=== PATIENT | female | born 1965 | race Caucasian/White ===

== ENCOUNTER → 2025-04-09 | Outpatient (CLI) | payer BC, SELFPAY ==
--- NOTE | 2025-04-09 12:30 | XR_ITS ---
Examination: Breast ultrasound complete, bilateral Date and time of exam: April 09, 2025 1223 hours INDICATIONS: Mammogram August 11, 2022 8mm oval mass right breast anterior depth 3 cm from the nipple Technique: Real-time grayscale ultrasonographic imaging bilateral breasts, including all 4 quadrants as well as nipple retroareolar and axillary regions. Findings: Sonographic images right and left breast demonstrated no cystic or solid masses IMPRESSION: BI-RADS Category 1: Negative studies
--- NOTE | 2025-04-09 13:30 | XR_ITS ---
Examination: Screening digital mammography, bilateral Computer aided detection 3-D breast Tomosynthesis, bilateral Date and time of exam: April 09, 2025, 1247 hours Compared to mammograms dating to April 17, 2017 Indication: Screening Technique: Nonmagnified MLO, CC views of the breasts to been obtained, reconstructed from 3-D Tomosynthesis images. R2 computer aided detection program utilized for evaluation of suspicious masses and/or abnormal calcifications. 3-D Tomosynthesis images obtained. Findings: Scattered areas of probable glandular density. 18 mm focal asymmetry upper outer left breast Impression: BI-RADS Category 0: Incomplete: Need additional imaging evaluation Recommend follow-up spot tomographic views of focal asymmetry upper outer left breast as well as left breast sonography to complete the workup
--- NOTE | 2025-04-09 13:45 | XR_ITS ---
Examination: Bone densitometry Date and time of exam:April 09, 2025 1248 hours INDICATIONS: Menopause age 43, family history mother osteoporosis, vitamin D 5 years, personal history osteopenia Compared to patient Technique: Lumbar spine and hip total bone mineralization values of an calculated. Peak reference and age match control results have been displayed. Findings: Lumbar spine total bone mineralization is0.821 gm/cm2. This is 2.1 standard deviations below peak reference. This is 0.5 standard deviations below age-matched controls. Hip total bone mineralization is 0.771 gm/cm2 This is 1.4 standard deviations below peak reference. This is 0.3 standard deviations below age-matched controls Impression: There is osteopenia based on lumbar spine measurements. There is osteopenia based on hip measurements Lumbar mineralization is decreased 4.4% compared with June 17, 2019 Hip mineralization is increased 2.2% compared with June 17, 2019
== END | disposition home or self-care (01) ==
LOC: CDIM 12:12
PROVIDERS: PCP Internal Medicine; Referring Provider Internal Medicine; Visit Provider Internal Medicine
DX: Z12.31 Encounter for screening mammogram for malignant neoplasm of breast (principal); N64.89 Other specified disorders of breast; M85.89 Other specified disorders of bone density and structure, multiple sites
CPT/HCPCS: 76641; 77063; 77067; 77080

== ENCOUNTER 2025-04-28 08:30 | Day surgery (SDC) | payer BC, SELFPAY ==
[2025-04-28] VITALS (10 sets, daily range): BP systolic 111–145; BP diastolic 65–89; PULSE 60–73; RESP 13–21; TEMP 36.4–36.7; O2SAT 95–100; BMI 38.7
[2025-04-28] MEDS: SODIUM CHLORIDE 0.9% 500 ML 500 ML 20 ML IV (10:24)
[2025-04-28] MEDS: MIDAZOLAM INJ 1 MG/ML VIAL 2 ML (ASD USE ONLY) 2 MG IVP (10:34)
[2025-04-28] MEDS: fentaNYL CIT INJ 50 mCg/ML AMP 2ML (ASD USE ONLY) IVP (10:34)
--- NOTE | 2025-04-28 11:02 | SUR.PHASEII ---
1042 patient is sleepy and arousable, breathing unlabored, s/p Colonoscopy under IV sedation, report received from Donna HUFFMAN.
--- NOTE | 2025-04-28 11:28 | SUR.PHASEII ---
1125 patient is awake, alert, breathing unlabored, able to ambulate to bathroom and pass gas, able to drink water with no nausea or vomiting, meets discharge criteria, discharge instructions given to patient and lorraine marsh, patient discharged home in wheelchair with all belongings.
== END 2025-04-28 11:25 | disposition home or self-care (01) ==
PROVIDERS: PCP Internal Medicine; Referring Provider Specialist; Visit Provider Specialist
PROC: 0DBE8ZX Excision of Large Intestine, Via Natural or Artificial Opening Endoscopic, Diagnostic (ICD-10-PCS; CPT 45380; principal; 2025-04-28 14:00)
DX: Z12.11 Encounter for screening for malignant neoplasm of colon (principal); K57.30 Diverticulosis of large intestine without perforation or abscess without bleeding; K64.9 Unspecified hemorrhoids
CPT/HCPCS: 45378; A4649; J1200; J2250; J3010; J7999

== ENCOUNTER → 2025-05-12 | Outpatient (CLI) | payer BC, SELFPAY ==
--- NOTE | 2025-05-12 08:30 | XR_ITS ---
Examination: Diagnostic digital mammography, unilateral, left Computer aided detection 3-D breast Tomosynthesis, unilateral Date and time of exam: May 12, 2025 0840 hours INDICATIONS: Mammogram April 09, 2025 18 mm focal asymmetry upper outer left breast Technique: Nonmagnified MLO, CC views of the left breast have been obtained, reconstructed from 3-D Tomosynthesis images. R2 computer aided detection program utilized for evaluation of suspicious masses and/or abnormal calcifications. 3-D Tomosynthesis images obtained. Findings: Scattered areas of fibroglandular density. No suspicious mass is depicted on the follow-up spot compression views Impression: BI-RADS category 2: Benign findings Return to yearly follow-up mammography
== END | disposition home or self-care (01) ==
LOC: CDIM 08:29
PROVIDERS: Referring Provider Internal Medicine; Visit Provider Internal Medicine
DX: R92.322 Mammographic fibroglandular density, left breast (principal)
CPT/HCPCS: 77061; 77065; G0279